=== PATIENT | female | born 1970 | race Hispanic/Latino ===

== ENCOUNTER 2016-08-06 20:50 | Emergency (ER) | payer OTHER ==
[~2016-08-06] VITALS: Ht 160 cm; Wt 69.5 kg
[~2016-08-06 20:50] MED LIST: CITA20TA PO; FLE10 PO; IBUP-1149 PO; OXYC-176 PO
[2016-08-06 20:52] VITALS: BP 185/106; PULSE 99; RESP 16; O2SAT 99
[2016-08-06 21:27] LABS: BASOPHILS % (AUTO) 0.9 % (0-3); EOSINOPHILS % (AUTO) 3.5 % (0-5); Mean Corpuscular Hemoglobin 29.2 pg (27.0-35.0); Mean Corpuscular Volume 85.8 fL (81-100); NEUTROPHILS % (AUTO) 51.5 % (40-74); Platelet Count 224 bil/L (150-400)
[2016-08-06 21:29] VITALS: BP 181/75; PULSE 95; RESP 15; O2SAT 100
--- NOTE | 2016-08-06 21:50 | ED.REPORT ---
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 Patient reports that she was laughing last night when her lips suddenly felt numb, with her right eye twitching. These symptoms resolved. However today she developed twitching of her left eye, with lip numbness, and numbness of her right lower arm. Patient reports a mild headache that began on arrival to the ED. Patient reports a family history of migraine, but she states that she has never had a migraine herself. However, the patient was admitted to [facility] in 2011 due to similar symptoms, with full stroke workup and a diagnosis of suspected migrainous phenomenon. She denies nausea, vomiting, diplopia, vision loss, fever , palpitations, chest pain, or shortness of breath. Patient denies a history of diabetes mellitus, but states that she requested work-up for diabetes when she saw her PCP last week. Nursing Notes Stated Complaint: EYE TWITCH,NUMB LIPS AND ARM Chief Complaint: Neuro Symptoms/ Deficits Nursing Notes Reviewed: Yes Allergies: Coded Allergies: No Known Allergies (Verified , 08/06/16) Scheduled Citalopram-Expunged Drug, Do Not Renew! (Citalopram-Expunged Drug, Do Not Renew! ) 20 Mg Tablet 20 MG PO Every other day Cyclobenzaprine-Expunged Drug, Do Not Renew! (Flexeril-Expunged Drug, Do Not Renew!) 10 Mg Tablet 10 MG PO TIDP IBUPROFEN-Expunged Drug, Do Not Renew! (IBUPROFEN-Expunged Drug, Do Not Renew!) 600 Mg Tablet 600 MG PO QID Oxycodone/APAP-Expunged Drug, Do Not Renew! (Percocet 5/325-Expunged Drug, Do Not Renew!) 1 Each Tablet 1-2 TAB PO Q6 As needed for pain. Scheduled PRN Promethazine (Promethazine) 25 Mg Tablet 25 MG PO Q6H PRN PRN migraine General Time Seen by MD: 21:49 Chief Complaint Headache, Other (numbness) Hx Obtained From: Patient Arrived By: Walk-in Sudden in Onset?: No Onset Occurred: Yesterday Symptom Duration: Intermittent Location: : Head Quality: Painful Severity: Current: Mild Severity: Maximum: Moderate Recent Healthcare: No recent doctor visit, No recent hospitalization Similar Sx Previous: Yes Past Medical History Past Medical History kidney stones arthritis depression [place] Palsy Prior hospital admit for suspected migrainous phenomenon (paresthesias of right face and right upper extremity) Past Surgical History knee surgery colonscopy Reports: Tubal ligation Smoking History Never Smoker Social History Other Social History: Good social support, Local resident Ambulatory Status Independent Review of Systems + eye twitching Full Review of Systems Constitutional: Denies: Chills, Fever Eyes: Denies: Blurred bilateral, Diplopia, Visual loss bilateral Respiratory: Denies: Shortness of breath Cardiovascular: Denies: Chest pain, Palpitations GI: Denies: Nausea, Vomiting Neurologic: Reports: Headache, Numbness Complete sys rev & neg: except as marked. Physical Exam Vital Signs Vital Signs Date Time Temp Pulse Resp B/P Pulse Ox O2 Delivery O2 Flow Rate FiO2 08/07/16 00:55 36.8 79 19 144/91 96 Room Air 08/07/16 00:34 36.8 79 19 144/91 96 Room Air 08/06/16 22:19 96 14 177/99 100 Room Air 08/06/16 21:29 95 15 181/75 100 Room Air 08/06/16 20:52 36.6 99 16 185/106 99 Room Air Initial VS: Reviewed Skin: Warm, Dry, No cyanosis Psychiatric: Mood/affect normal, Behavior normal, Normal thought content General/Constitutional: Awake, Alert, No acute distress Head / Eyes: Atraumatic, Normocephalic, PERRL, EOMI, No nystagmus ENT: Airway patent, Mucous membranes moist Neck: Supple, Full range of motion Respiratory / Chest: Breath sounds NL, Breath sounds = bilat, No respiratory distress, No rales, No rhonchi, No wheezing Cardiovascular: Heart rate NL, Regular rhythm, Heart sounds NL, No murmurs Abdomen: Soft, Non-tender, No guarding, No rebound Upper Extremities Upper Extremity / MS: No deformity, Neurologic intact, Vascular intact Lower Extremity / Pelvis / MS: No deformity, Neurologic intact, Vascular intact Neurologic: Oriented X3, Speech NL, No motor deficits, No sensory deficits, CN II - XII intact, Cerebellar NL lagging facial movements on the right, consistent with history of Holley's Palsy Interpretation & Diagnostics Lab Results Interpretation Result Diagram: 08/06/16211908/06/162119 Test 08/06/16 21:20 08/06/16 22:28 08/06/16 23:11 White Blood Count 7.4th/mm3 (3.8-10.1) Red Blood Count 4.80mil/mm3 (3.90-5.20) Hemoglobin 14.0g/dL (12.0-15.6) Hematocrit 41.2% (35.0-46.0) Mean Corpuscular Volume 85.8fL (81-100) Mean Corpuscular Hemoglobin 29.2pg (27.0-35.0) Mean Corpuscular Hemoglobin Concent 34.0% (32.0-37.0) Red Cell Distribution Width 13.2% (12.3-15.4) Platelet Count 224bil/L (150-400) Neutrophils (%) (Auto) 51.5% (40-74) Lymphocytes (%) (Auto) 35.6% (14-46) Monocytes (%) (Auto) 8.0% (4-12) Eosinophils (%) (Auto) 3.5% (0-5) Basophils (%) (Auto) 0.9% (0-3) Sodium Level 136mEq/L (134-144) Potassium Level 3.6mEq/L (3.5-5.2) Chloride Level 100mEq/L (97-108) Carbon Dioxide Level 22mmol/L (18-29) Blood Urea Nitrogen 15mg/dL (6-24) Creatinine 0.49mg/dL (0.57-1.00) Estimat Glomerular Filtration Rate 195mL/min (>59) Glucose Level 106mg/dL (60-99) Calcium Level 9.2mg/dL (8.5-10.1) Total Bilirubin 0.2mg/dL (0.0-1.2) Aspartate Amino Transf (AST/SGOT) 17U/L (0-50) Alanine Aminotransferase (ALT/SGPT) 16U/L (0-32) Alkaline Phosphatase 81U/L (25-150) C-Reactive Protein 0.4mg/dL (0.0-0.5) Total Protein 7.9g/dL (6.4-8.4) Albumin 4.3g/dL (3.4-5.0) Hold Goss Top Tube Received (Received) Erythrocyte Sedimentation Rate 26mm/hr (0-32) Hold Urine Received (Received) CT Head Interpretation CONCLUSION: Negative non-contrast CT scan of the head; no acute intracranial abnormality. Radiologist: Colby Louie MD 08/06/2016 - 10:23:45 PM PDT Study: Head CT no contrast Interpretation / Wet Read by: Interpret - Radiologist Re-Eval/Medical Decision Med Decision/Clinical Course 46-year-old presents with migratory tingling and numbness in her face as well as her right arm. His crosses the midline and is inconsistent with stroke. She has similar episode and was evaluated thoroughly several years ago, with the suspicion of complex migraine at the end of that evaluation. This again appears to be consistent with migraine and not consistent with stroke. Her CT is negative and labs are unremarkable. Treated for migraine with improvement. Home with promethazine for home use. Source of Hx: Old records Time of Eval: 23:48 Re-Evaluation/Progress Note: Rechecked the patient. She was informed that her CT scan and labs were normal. Her symptoms are likely due to a migraine. Will wait for headache medications to relieve symptoms prior to discharge. Time of Eval: 00:50 Patient Status: Condition improved Re-Evaluation/Progress Note: Patient feels improved. Patient understands and agrees with the plan to be discharged home. Discharge instructions and follow-up discussed. All questions were addressed. Return to the ED warnings given. Counseled Regarding: Diagnosis, Lab results, Need for follow-up, When/why to return to ED Discharge & Departure Primary Impression: Complicated migraine Disposition: Home Discharge Condition All VS Reviewed: Yes Condition: Stable Patient Instructions: Migraine Headache (ED) Additional Instructions: We find no evidence of stroke or other serious cause for your symptoms. This is apparently similar to an episode you had about five years ago, and your doctors came to the same general conclusion, that this is related to migraine. Follow-up with your doctor in the office. Return if you have any persistent numbness and weakness on one side or the other of your body. Return for any other new symptoms of concern. Referrals: Demond Rock MD (PCP) Scribe Attestation Portions of this note were transcribed by Chelsie Rodriguez. I, Dr. Weldon personally performed the history, physical exam and medical decision-making; I reviewed and confirmed the accuracy of the information in the transcribed note. Signed by: Michael Fuentes, 08/07/2016 0050 copies to: Demond Rock MD, Christopher W MD Aug 06, 2016 21:50 Chelsie Rodriguez Aug 06, 2016 21:57
[2016-08-06 22:19] VITALS: BP 177/99; PULSE 96; RESP 14; O2SAT 100
[2016-08-06] MEDS ORDERED: Haloperidol 5 mg/mL Inj IVPUSH ONE (23:00)
[2016-08-06] MEDS ORDERED: PROM25TA14 PO (23:45)
[2016-08-06] MEDS ORDERED: 0.9% Sodium Chloride 50 ML ONE (23:49)
[2016-08-07 00:34] VITALS: BP 144/91; PULSE 79; RESP 19; O2SAT 96
[2016-08-07 00:55] VITALS: BP 144/91; PULSE 79; RESP 19; O2SAT 96
--- NOTE | 2016-08-07 09:06 | DRSVH ---
PROCEDURE: CT BRAIN WITHOUT CONTRAST ([id number]) INDICATIONS: tingling in face and rt arm TECHNIQUE: Noncontrast 4.5 mm thick angled axial sections acquired from the foramen magnum to the vertex, with c oronal reformats. COMPARISON: [facility], CT, BRAIN W/O CONTRAST, 08/12/2012, 13:12. FINDINGS: Image quality: Excellent. CSF spaces: Basal cisterns are patent. No extra-axial fluid collections. Ventricles are normal in size and shape. Brain: No midline shift. No intracranial masses or hemorrhage. Arzate-white matter interface is norm al. Skull and face: Calvarium and visualized facial bones are intact, without suspicious lesions. Sinuses: Visualized sinuses and mastoids are clear. IMPRESSION: 1. No acute intracranial process. Dictated by: Amelia Murphy M.D. on 08/07/2016 at 9:04 Approved by: Amelia Murphy M.D. on 08/07/2016 at 9:05
== END 2016-08-07 00:57 | disposition home or self-care (01) ==
LOC: SED 20:50
DX: G43.109 Migraine with aura, not intractable, without status migrainosus (principal)
CPT/HCPCS: 36415; 70450; 80053; 85025; 85651; 86140; 96361; 96374; 96375; 99285; J1200; J1630